=== PATIENT | male | born 1990 | race Caucasian/White ===

== ENCOUNTER 2018-11-29 08:06 | Emergency (ER) | payer MEDICAID, BC ==
[2018-11-29] MEDS: ACETAMINOPHEN 500 MG TAB PO ×2 (10:00→10:02)
[2018-11-29] MEDS: DEXAMETHASONE 10 MG/ML 1 ML INJ IM (10:01)
[2018-11-29] MEDS: ALBUTEROL 0.083% (NEB) 2.5 MG/3 ML AMP NEB (10:05)
[2018-11-29] MEDS: IPRATROPIUM (NEB) 0.5 MG/2.5 ML AMP NEB (10:05)
[2018-11-29] MEDS: IBUPROFEN 800 MG TAB PO (10:08)
== END 2018-11-29 11:34 | disposition home or self-care (01) ==
LOC: FTE 08:06
DX: J40 Bronchitis, not specified as acute or chronic (principal); F17.210 Nicotine dependence, cigarettes, uncomplicated
CPT/HCPCS: 71045; 87400; 94664; 96372; 99284-25